=== PATIENT | female | born 1985 | race Two or more races ===

== ENCOUNTER 2017-07-28 03:12 | Emergency (ER) | payer MEDICAID ==
[2017-07-28 03:21] VITALS: BP 104/78; PULSE 81; RESP 16; TEMP 97.9; O2SAT 95
--- NOTE | 2017-07-28 04:38 | EDPHY ---
H & P Stated Complaint: Wants finger checked Time Seen by Provider: 07/28/17 04:26 HPI/ROS: Chief Complaint: Left finger swelling HPI: 32-year-old woman's had noticed 2 days ago some swelling over her 1st knuckle of her left ring finger. Is not warm to the touch. She denies any injuries but did notice that the finger was black and blue yesterday. Today she knows discontinue piece black and blue but improved. She did try to remove her ring today but got stuck. She has been to initially pulling and trying to remove it with a red without success. She now has increasing swelling. Is not warm to the touch. There is no streaking up her hand. No prior history of similar. ROS: 10 point Review of Systems is negative except as noted in the HPI. Physical Exam: General: Awake, alert, no acute distress Right hand: She has got some moderate swelling with mild ecchymosis over the dorsal aspect of her right ring finger PIP joint. There is no swelling at the base of the finger. Her rings are loose. I am unable to remove them over the joint. She has full flexion extension. There is no bony tenderness whatsoever. Is not warm to the touch. There is no fluctuance or masses. Capillary refills normal distally. Sensations intact. Skin: No rash - Personal History Current Tetanus/Diphtheria Vaccine: Unsure Current Tetanus Diphtheria and Acellular Pertussis (TDAP): Unsure - Medical/Surgical History Hx Asthma: No Hx Chronic Respiratory Disease: No Hx Diabetes: No Hx Cardiac Disease: No Hx Renal Disease: No Hx Cirrhosis: No Hx Alcoholism: No Hx HIV/AIDS: No Hx Splenectomy or Spleen Trauma: No Other PMH: None - Social History Smoking Status: Never smoked Constitutional: Initial Vital Signs Temperature (C) 36.6 C 07/28/17 03:16 Heart Rate 81 07/28/17 03:16 Respiratory Rate 16 07/28/17 03:16 Blood Pressure 104/78 07/28/17 03:16 O2 Sat (%) 95 07/28/17 03:16 O2 Delivery Mode Room Air Allergies/Adverse Reactions: aspirin Allergy (Verified 07/28/17 03:21) ibuprofen Allergy (Verified 07/28/17 03:21) Home Medications: Medication Instructions Recorded Multi-Vitamin Daily 07/28/17 Departure - Departure Disposition: Home, Routine, Self-Care Clinical Impression: Finger contusion Condition: Good Instructions: Contusion in Adults (ED) Additional Instructions: Apply ice to your hand for 15 minutes every 3-4 hours while awake. Return to the emergency department if you have worsening swelling and your rings get tight on that hand. Follow up with primary care doctor in 2-3 days for further evaluation. Referrals: NONE *PRIMARY CARE P,. [Primary Care Provider] - As per Instructions
== END 2017-07-28 04:46 | disposition home or self-care (01) ==
DX: M79.89 Other specified soft tissue disorders (principal)

== ENCOUNTER → 2018-09-01 | Outpatient (CLI) | payer MEDICAID | LOC: FIMAGING 11:38 | PROVIDERS: ATTEND Family Medicine | DX: O09.512 Supervision of elderly primigravida, second trimester (principal); Z3A.19 19 weeks gestation of pregnancy ==

== ENCOUNTER → 2018-10-07 | Outpatient (CLI) | payer MEDICAID | LOC: FIMAGING 10:17 | PROVIDERS: ATTEND Family Medicine | DX: O09.512 Supervision of elderly primigravida, second trimester (principal); Z3A.24 24 weeks gestation of pregnancy ==

== ENCOUNTER → 2018-12-04 | Outpatient (CLI) | payer MEDICAID | LOC: FIMAGING 10:10 | PROVIDERS: ATTEND Family Medicine | DX: O09.513 Supervision of elderly primigravida, third trimester (principal); Z3A.33 33 weeks gestation of pregnancy ==